=== PATIENT | female | born 1985 | race Hispanic/Latino ===

== ENCOUNTER 2018-12-22 23:46 | Inpatient (IN) | payer OTHER, SELFPAY ==
[2018-12-23] MEDS ORDERED: BUTORPHANOL 1 MG/ML INJ IV PRN (00:08)
[2018-12-23] MEDS ORDERED: CARBOPROST TROME 250 MCG/ML IM PRN ×2 (00:08→04:15)
[2018-12-23] MEDS ORDERED: Ringers Lactate 1,000 ML IV PRN (00:08)
[2018-12-23] MEDS ORDERED: METHYLERGONOVINE 0.2MG/ML AMP IM PRN ×2 (00:08→04:15)
[2018-12-23] MEDS ORDERED: PROMETHAZINE 25 MG/ML VIAL IM PRN (00:08)
[2018-12-23 00:39] LABS: Urine Appearance CLEAR; Urine Bilirubin NEGATIVE (NEG); Urine Blood NEGATIVE (NEG); Urine Color YELLOW; Urine Glucose NEGATIVE (NEG); Urine Microscopic Reflex ORDER UMIC; Urine Protein NEGATIVE (NEG); Urine Specific Gravity <=1.005 (1.005-1.030); Urine Urobilinogen 0.2 mg/dL (0.2-1.0); Urine pH 5.5 (5.0-7.0)
[2018-12-23 00:42] LABS: Absolute Lymphocytes (CBC) 2.5 K/uL (0.7-4.9); Basophils % 0.2 % (0-1.3); Hematocrit 35.8 % (36.0-45.0); Lymphocytes % 26.1 % (15.3-44.8); MPV 7.9 fL (7.6-11.3)
[2018-12-23] MEDS ORDERED: FENTANYL CITR 100 MCG/2 ML IV ONE (00:50)
[2018-12-23] MEDS ORDERED: ROPIVACAINE HCL 100 ML IV PRN (00:50)
[2018-12-23] MEDS ORDERED: ROPIVACAINE HCL 0.2% 20ML AMP SQ ONE (00:51)
[2018-12-23 00:56] LABS: Urine Bacteria <20 /HPF (<20); Urine Culture Reflex Order REFLEXED; Urine RBC <5 /HPF (NONE SEEN)
[2018-12-23] MEDS ORDERED: Ringers Lactate 1,000 ML IV SCH (01:00)
[2018-12-23] MEDS ORDERED: OXYTOCIN/LR 20 UNIT/1,000 ML BAG IV SCH ×2 (01:00→05:00)
[2018-12-23] MEDS ORDERED: OXYTOCIN 10 UNIT/ML ML IV ONE (03:10)
[2018-12-23] MEDS ORDERED: Ringers Lactate 1,000 ML IV ONE (03:10)
[2018-12-23 03:27] VITALS: BMI 27.6
--- NOTE | 2018-12-23 03:51 | PREOPHP ---
Date of Admission: 12/23/2018 History Of Present Illness: Ms. Slaughter is a 33-year-old female, 2, para 1- 0-0-1, now at approximately 38 plus weeks gestation. She is admitted in labor. She noted contractio ns starting about 10 o'clock this evening. Her cervix is noted to be 4 cm, vertex presentation. Past Medical History: Please see record. Family History: Please see record. Review of Systems: She reports no recent cough, cold, fever, or chills. No recent nausea or vomiting. No breast knots or lumps. No bowel or bladder issues. She denies rupture of membranes. She denies any urine sympto ms or other complaints. She has been followed by me during the with diet-controlled gestat ional diabetes and sugars have been under good control. Physical Examination: General: Reveals female in moderate discomfort. Neck: Supple without adenopathy or thyromegaly. Lungs: Clear. Cardiac: Regular rate and rhythm without murmurs. Breasts: Not examined. Abdomen: Estimated weight of 7+ to 8 pounds. Pelvic: Cervix noted to be 4 cm dilated vertex presentation at 0 station. Extremities: No cyanosis, clubbing, or edema. Impression: Term , active labor, diet-controlled gestational diabetes. Plan: Patient will be admitted for delivery. RAYA/ANDERSON Voice ID: [id number]
[2018-12-23] MEDS ORDERED: METHYLERGONOVINE 0.2 MG TAB PO PRN (04:15)
[2018-12-23] MEDS ORDERED: Oxycodone HCl/Acetaminophen 1 TAB TAB PO PRN (04:15)
[2018-12-23] MEDS ORDERED: ONDANSETRON 4 MG (ODT) TAB PO PRN (04:15)
--- NOTE | 2018-12-23 04:19 | P.BOP ---
Preoperative diagnosis: 38+ wk , labor Postoperative diagnosis: same, SCVD viable male Primary procedure: SCVD, right midline epis. with repair Estimated blood loss: 250ml Anesthesia: epidural Complications: None Transferred to: Other (272) Condition: Good
[2018-12-23] MEDS: IBUPROFEN 200 MG TAB PO PRN ×2 (08:50→14:45)
[2018-12-23 21:54] LABS: RPR (Rapid Plasma Reagin) NON-REACT (NON-REACT)
[2018-12-24 08:14] VITALS: BP 102/63; TEMP 98.2
--- NOTE | 2018-12-24 08:46 | OP ---
Surgeon: Rehan Pimentel MD Ms. Slaughter is a 33-year-old female, 2, para 1-0-0-1, followed by me during this with complications of diet-controlled gestational diabetes. She presented, noted to b e 4 cm dilated with intact membranes. She had a first stage of labor of approximately 1 hour and 14 minutes, second stage of labor 15 minutes. She delivered by spontaneous controlled vaginal delivery over a right midline episiotomy a 7 pound 3 ounce male infant, 9 and 10. After delayed cord cl amping, the infant was placed on mother's upper abdomen. Cord blood was obtained. The placenta was spontaneously expelled and appeared to be intact. Intrauterine examination revealed no retained plac ental fragments. Episiotomy was repaired in the usual fashion with 3-0 Vicryl suture. Estimated tot al blood loss was approximately 300 mL. She received 1 mg of Stadol for IV analgesia, 12.5 mg of Phe nergan x1 prior to placement of epidural catheter. RAYA/ANDERSON Voice ID: [id number] Report ID: [id number]
--- NOTE | 2018-12-24 09:10 | DS ---
Final Hospital Discharge Diagnoses: 38+ weeks , delivered; gestational diabetes, diet contr olled. Complications: None. Procedures: Artificial rupture of membranes, placement of epidural catheter, right midline episiotom y with repair, spontaneous controlled vaginal delivery of viable male infant. Hospital Course: Patient is a 33-year-old female, 2, para 1-0-0-1, at 38+ weeks' gestation, admitted in active labor. She delivered a 7-pound 3-ounce male , 9 and 10 with epidural anesthesia. She was dismissed on the first day, ambulatory, on a select diet with routine postvaginal delivery activity restrictions, to be seen back in my office in 1 week period of time. She will be dismissed her infant. Lab work obtained during this hosp ital stay included an admission hemoglobin and hematocrit of 12.5 and 35.8. Dismissal hematocrit of 34.0. Fasting blood sugar was 74. Urinalysis was negative. Serology, RPR was nonreactive. She is Rh positive blood type. She was dismissed with prescription for Tylenol No. 3, #10, for pain relief, to continue taking her iron and vitamins with usual postvaginal delivery activity restricti ons. RAYA/ANDERSON Voice ID: [id number] Report ID: [id number]
--- OUTSIDE RECORDS SUMMARY | 2018-12-27 02:27 | XMS REPORT ---
:1985 [facility] [address] [place] [address] [address] [place] [address] Care Team Providers Name Role Phone Unavailable Unavailable Unavailable Problems This patient has no known problems. Allergies, Adverse Reactions, Alerts This patient has no known allergies or adverse reactions. Medications This patient has no known medications.
[2018-12-27 03:08] LABS: HBsAG Nonreactive (Nonreactive)
== END 2018-12-24 09:10 | disposition home or self-care (01) | DRG 807 ==
LOC: L&D 23:46 → 2ND-WC 12-23 00:02
PROVIDERS: ADMIT Specialist; ATTEND Specialist
PROC: 10907ZC Drainage of Amniotic Fluid, Therapeutic from Products of Conception, Via Natural or Artificial Opening (ICD-10-PCS; principal; 2018-12-23)
PROC: 10E0XZZ Delivery of Products of Conception, External Approach (ICD-10-PCS; 2018-12-23)
PROC: 0W8NXZZ Division of Female Perineum, External Approach (ICD-10-PCS; 2018-12-23)
DX: O24.420 Gestational diabetes mellitus in childbirth, diet controlled (principal); Z37.0 Single live birth; Z3A.38 38 weeks gestation of pregnancy
CPT/HCPCS: 36415; 81003; 81015; 82947; 85014; 85025; 86592; 86901; 87086; 87088; 87340; 99218; J0595; J2550; J2590; J2795; J3010; J7120